=== PATIENT | male | born 1965 | race Caucasian/White ===

== ENCOUNTER 2017-02-12 14:03 | Inpatient (IN) ==
--- NOTE | 2017-02-12 14:56 | Emergency Department Note ---
Disposition Clinical Impression: Abdominal pain Qualifiers: Abdominal location: right lower quadrant Qualified Code(s): R10.31 - Right lower quadrant pain Disposition: Admitted As Inpatient Condition: Good [facility] Provider[facility] - Forms: ED Satisfaction Letter, Work/School Release Time of Disposition: 17:14 Abdominal Pain HPI - General Chief Complaint: ED Abdominal Pain Stated Complaint: Right Lower Quadrant Pain Time Seen by Provider: 02/12/17 14:23 Source: EMS Mode of arrival: ambulatory Limitations: no limitations Nursing Notes Reviewed: Yes Vital Signs Reviewed: Yes - History of Present Illness HPI Narrative: Mr. Acosta is a 51-year-old man with no significant medical history who presents to the ED with right-sided abdominal pain of approximately 7 days' duration. He says that the pain began insidiously more towards the right upper quadrant and slowly migrated towards his right lower quadrant. The pain became so severe that it was approximately a 10 out of 10, and became intolerable. She had some nausea and some vomiting associated with this as well as some black stools which began a few days ago and some diarrhea. Has been extremely helpful for this pain, moving makes it worse. He was seen at several other medical institutions for workup of this abdominal pain. Apparently he has had multiple scans of his abdomen, and has been worked up for acute cholecystitis. He was most recently seen at the [place] emergency room this morning and was told that there is nothing that they could find. He did get 1 shot of Toradol at that time which has been helpful for his pain and his brother to a 3 out of 10. Additionally, the pain does apparently radiate towards his back. He denies any abdominal surgeries in the past. He is not having any fever, chills, chest pain, shortness of breath. Pain Scale: 3 - Related Data Allergies Allergy/AdvReac Type Severity Reaction Status Date / Time No Known Allergies Allergy Verified 02/12/17 15:28 Constitutional: Denies: fever, chills Cardiovascular: Denies: chest pain, palpitations, dyspnea on exertion Respiratory: Reports: cough. Denies: dyspnea, wheezes, hemoptysis, sputum production Gastrointestinal: Reports: abdominal pain, nausea, vomiting, diarrhea, melena. Denies: constipation, hematemesis, hematochezia Genitourinary: Denies: urgency, dysuria, frequency Musculoskeletal: Reports: back pain Integumentary: Denies: rash Neurological: Denies: headache Psychiatric: Denies: anxiety Endocrine: Denies: fatigue Hematological/Lymphatic: Denies: easy bleeding Allergic/Immunologic: Denies: facial swelling Abdominal Pain PMH - Past Medical History Medical history: Reports: other Male Surgical History: Reports: orthopedic, other Psychiatric history: Reports: no psych history - Social History Smoking status: Never smoker Alcohol use: Reports: occasionally Drug use: Reports: none Physical Exam Gen.: Vitals noted. No acute distress. AAOx3 HEENT: Normocephalic, atraumatic Cardiac: RRR, no murmur, +S1/S2 Pulmonary: CTA bilaterally, no wheezes, rales or rhonchi, equal chest expansion Abdomen: soft, diffusely tender to palpation with extra tenderness noted in right lower quadrant. Positive McBurney's point positive Rovsing sign Back: Nontender throughout. Extremities: no BLE edema, nontender calf, no cyanosis or clubbing - General Limitations: no limitations General appearance: alert, in no apparent distress Course Vital Signs Temperature 98.5 F 02/12/17 14:04 Pulse Rate 80 02/12/17 14:04 Respiratory Rate 16 02/12/17 14:04 Blood Pressure 129/85 02/12/17 14:04 O2 Sat by Pulse Oximetry 98 02/12/17 14:04 Temperature 98.5 F 02/12/17 14:04 Pulse Rate 61 02/12/17 16:19 Respiratory Rate 18 02/12/17 16:19 Blood Pressure 153/90 02/12/17 16:19 O2 Sat by Pulse Oximetry 99 02/12/17 16:19 Oxygen Delivery Oxygen Delivery Room Air Abdominal Pain - MDM Narrative Medical decision making narrative: I reviewed the patient's labs, imaging, medical records from the [place]. The patient is having severe abdominal pain which is intractable and has been constant. The patient does have minimal guarding on exam and has a positive Rovsing sign. Despite this, he does not have any evidence radiologically of any acute abdominal process. The patient has been seen at multiple ERs, has had a myriad of imaging and has not found any acute process. Rather, the patient does not have any indication on his labs that there is an infective or hematologic process. The patient's pain is adequately controlled with Toradol, however they rapidly returns to the high rate. The report from the CT of the abdomen earlier did ask for a renal protocol CT to address a 15 mm left renal lesion, however after speaking with the radiologist here the patient is not a candidate for this today because he has already received IV contrast and an previous CT today. I spoke with the on-call surgeon Dr. Argueta who stated that she does not believe this is an acute abdominal emergency, however she is willing to evaluate the patient in the morning. She suggested that we admit the patient to her service, for serial abdominal exams and for surgical evaluation. I spoke with the patient and his who agree to this plan. - Medical Records Medical records reviewed: Yes I reviewed the patient's medical records. - Lab Data Lab results reviewed: Yes I reviewed the patient's lab results. Result diagrams: 02/12/17 15:06 02/12/17 15:06 Lab Results 02/12/17 02/12/17 02/12/17 Range/Units 14:43 15:06 15:06 WBC 7.0 (4.3-11.1) K/mcL RBC 5.70 H (4.19-5.50) M/mcL Hgb 17.3 H (12.9-16.9) g/dL Hct 51.7 H (37.5-50.1) % MCV 90.7 (83.0-100.0) fL MCH 30.4 (28.0-33.3) pg MCHC 33.5 (31.6-35.5) g/dL RDW 11.3 L (11.5-14.5) % Plt Count 307 (140-400) K/mcL MPV 9.8 (9.4-12.4) fL Immature Gran % 1.0 (0-4) % Seg Neutrophils % 56.7 % Lymphocytes % 33.2 % Monocytes % 7.8 % Eosinophils % 0.7 % Basophils % 0.6 % Neutrophils # 4.0 (1.6-8.9) K/mcL Lymphocytes # 2.3 (0.6-4.6) K/mcL Monocytes # 0.6 (0.0-1.3) K/mcL Eosinophils # 0.1 (0.0-0.6) K/mcL Basophils # 0.0 (0.0-0.2) K/mcL Sodium 138 (136-145) mEq/L Potassium 3.8 (3.5-5.1) mEq/L Chloride 104 (98-107) mEq/L Carbon Dioxide 26 (23-29) mEq/L BUN 14 (6-20) mg/dL Creatinine 0.82 (0.70-1.30) mg/dL Est GFR ( Amer) > 60 (> 60) Est GFR (Non-Af Amer) > 60 (> 60) BUN/Creatinine Ratio 17 (6-26) Glucose 94 (70-105) mg/dL Calculated Osmolality 286 (280-300) Calcium 9.4 (8.6-10.3) mg/dL Total Bilirubin 0.7 (0.3-1.0) mg/dL Direct Bilirubin 0.1 (0.0-0.2) mg/dL Indirect Bilirubin 0.6 (0.0-1.2) mg/dL AST 16 (13-39) Units/L ALT 15 (7-52) Units/L Alkaline Phosphatase 76 (34-104) Units/L Troponin I (< 0.04) ng/mL Serum Total Protein 7.7 (6.4-8.9) g/dL Albumin 4.6 (3.5-5.7) g/dL Globulin 3.1 (2.4-3.5) g/dL Albumin/Globulin Ratio 1.5 (1.1-2.2) Lipase 10 L (11-82) Units/L Urine Color (Yellow) Urine Clarity (Clear) Urine pH (5.0-8.0) pH Units Ur Specific [place] (1.010-1.025) Urine Protein (Neg-Trace) mg/dL Urine Glucose (UA) (Normal) mg/dL Urine Ketones (Negative) mg/dL Urine Blood (Negative) Urine Nitrite (Negative) Urine Bilirubin (Negative) Urine Urobilinogen (Normal) mg/dL Ur Leukocyte Esterase (Negative) Ur Culture Indicated? (NO) Stool Occult Blood Negative (Negative) 02/12/17 02/12/17 Range/Units 15:06 15:27 WBC (4.3-11.1) K/mcL RBC (4.19-5.50) M/mcL Hgb (12.9-16.9) g/dL Hct (37.5-50.1) % MCV (83.0-100.0) fL MCH (28.0-33.3) pg MCHC (31.6-35.5) g/dL RDW (11.5-14.5) % Plt Count (140-400) K/mcL MPV (9.4-12.4) fL Immature Gran % (0-4) % Seg Neutrophils % % Lymphocytes % % Monocytes % % Eosinophils % % Basophils % % Neutrophils # (1.6-8.9) K/mcL Lymphocytes # (0.6-4.6) K/mcL Monocytes # (0.0-1.3) K/mcL Eosinophils # (0.0-0.6) K/mcL Basophils # (0.0-0.2) K/mcL Sodium (136-145) mEq/L Potassium (3.5-5.1) mEq/L Chloride (98-107) mEq/L Carbon Dioxide (23-29) mEq/L BUN (6-20) mg/dL Creatinine (0.70-1.30) mg/dL Est GFR ( Amer) (> 60) Est GFR (Non-Af Amer) (> 60) BUN/Creatinine Ratio (6-26) Glucose (70-105) mg/dL Calculated Osmolality (280-300) Calcium (8.6-10.3) mg/dL Total Bilirubin (0.3-1.0) mg/dL Direct Bilirubin (0.0-0.2) mg/dL Indirect Bilirubin (0.0-1.2) mg/dL AST (13-39) Units/L ALT (7-52) Units/L Alkaline Phosphatase (34-104) Units/L Troponin I < 0.03 (< 0.04) ng/mL Serum Total Protein (6.4-8.9) g/dL Albumin (3.5-5.7) g/dL Globulin (2.4-3.5) g/dL Albumin/Globulin Ratio (1.1-2.2) Lipase (11-82) Units/L Urine Color Yellow (Yellow) Urine Clarity Clear (Clear) Urine pH 6.0 (5.0-8.0) pH Units Ur Specific [place] > 1.030 H (1.010-1.025) Urine Protein Negative (Neg-Trace) mg/dL Urine Glucose (UA) Normal (Normal) mg/dL Urine Ketones Negative (Negative) mg/dL Urine Blood Negative (Negative) Urine Nitrite Negative (Negative) Urine Bilirubin Negative (Negative) Urine Urobilinogen Normal (Normal) mg/dL Ur Leukocyte Esterase Negative (Negative) Ur Culture Indicated? NO (NO) Stool Occult Blood (Negative) - Radiology Data Radiology results reviewed: Yes I reviewed the patient's radiology results. Attestation Statement - Attestation Attestation: Resident this patient 51-year-old male presents to emergency department transfer from the [facility] with complaint of right upper and lower quadrant abdominal pain. Patient states the pain been ongoing for greater than 7 days. He has had extensive workups including multiple ultrasounds and CT scans most recently today. He was sent here because of basically intractable pain and inability to find a source for the comfort. Everything is been coming back okay. Patient states the pain is sharp it in the upper and lower abdomens. He has had some darker stools which she attributed to drinking a lot of chocolate milk. He denies fevers or chills. No chest pain. On exam vital signs are stable. ENT is unremarkable. Heart and lungs are normal. Abdomen is soft but there is tenderness in the right upper and right lower quadrants there is no guarding or rigidity. Extremities are unremarkable. Neurologically this patient is intact. ED course I spoke with the patient is and with the really want is to do a laparoscopic to determine what going on. I told him that probably was not something that can be done emergently of all the tests were normal. We did take the time to get the results from the [place] and all the paperwork from there they did recommend a CT scan with renal specificity. As a result we will order this test and some additional lab testing and then we will discuss with surgery to at the very least ensure that we have appropriate follow -up care and management. Radiology called back and they were unable to perform the test because of patient just gotten IV contrast. This is explained to the family. We discussed the case with surgery who agreed to accept the patient for admission for serial abdominal exams through the course of the evening. We presented this is an option to the patient or for option for follow-up. They opted to stay in the hospital as her fairly frustrated with lack of diagnosis. Hemodynamically he remained stable we worked on pain control while in the ER. I agree with the resident physician assessment and plan.
[2017-02-12 15:18] LABS: Basophils % 0.6 %; Eosinophils # 0.1 K/mcL (0.0-0.6); Eosinophils % 0.7 %; Hematocrit 51.7 % (37.5-50.1); Hemoglobin 17.3 g/dL (12.9-16.9); Lymphocytes # 2.3 K/mcL (0.6-4.6); Lymphocytes % 33.2 %; Mean Corpuscular HGB Conc 33.5 g/dL (31.6-35.5); Mean Corpuscular Hemoglobin 30.4 pg (28.0-33.3); Mean Corpuscular Volume 90.7 fL (83.0-100.0); Mean Platelet Volume 9.8 fL (9.4-12.4); Monocytes # 0.6 K/mcL (0.0-1.3); Monocytes % 7.8 %; Platelet Count 307 K/mcL (140-400); Red Cell Distribution Width 11.3 % (11.5-14.5); Segmented Neutrophils % 56.7 %
[2017-02-12 15:41] LABS: Alanine Aminotransferase 15 Units/L (7-52); Albumin 4.6 g/dL (3.5-5.7); Albumin/Globulin Ratio 1.5 (1.1-2.2); Alkaline Phosphatase 76 Units/L (34-104); Aspartate Amino Transferase 16 Units/L (13-39); BUN/Creatinine Ratio 17 (6-26); Bilirubin,Direct 0.1 mg/dL (0.0-0.2); Bilirubin,Indirect 0.6 mg/dL (0.0-1.2); Bilirubin,Total 0.7 mg/dL (0.3-1.0); Blood Urea Nitrogen 14 mg/dL (6-20); Calcium 9.4 mg/dL (8.6-10.3); Carbon Dioxide 26 mEq/L (23-29); Chloride 104 mEq/L (98-107); Globulin 3.1 g/dL (2.4-3.5); Glucose 94 mg/dL (70-105); Lipase 10 Units/L (11-82); Osmolality,Calculated 286 (280-300); Potassium 3.8 mEq/L (3.5-5.1); Sodium 138 mEq/L (136-145); Total Protein 7.7 g/dL (6.4-8.9); eGFR For African Americans > 60 (> 60); eGFR For Non-African Americans > 60 (> 60)
[2017-02-12 15:46] LABS: Bilirubin,Urine Negative (Negative); Blood,Urine Negative (Negative); Clarity,Urine Clear (Clear); Color,Urine Yellow (Yellow); Glucose,Urine (UA) Normal (Normal); Ketones,Urine Negative (Negative); Leukocyte Esterase,Urine Negative (Negative); Nitrite,Urine Negative (Negative); Protein,Urine Negative (Neg-Trace); Specific Gravity,Urine > 1.030 (1.010-1.025); Urobilinogen,Urine Normal (Normal)
[2017-02-12] MEDS ORDERED: Ketorolac 60 MG/2 ML VIAL IM ONE (16:19)
--- NOTE | 2017-02-12 18:29 | General Surg History&Physical ---
<Mable Hope - Last Filed: 02/12/17 20:42> Date of Encounter: 02/12/17 Time of Encounter: 17:40 Assessment and Plan (1) Abdominal pain Current Visit: Yes Status: Acute The assessment and plan as outlined above was discussed with the patient and/or family members who expressed understanding and agreement. All questions were answered. - RUQ and RLQ abdominal pain - Labs and vitals unremarkable - Previous imaging in outside EDs negative for cholelithiasis per patient - Possible etiology of biliary dyskinesia Plan - HIDA scan scheduled for tomorrow. - Morphine PRN pain - Zofran - Protonix 40 mg BID - IVF at 100 mL/hr. NPO midnight Qualifiers: Abdominal location: right upper quadrant Qualified Code(s): R10.11 - Right upper quadrant pain (2) Nausea & vomiting Current Visit: Yes Status: Acute The assessment and plan as outlined above was discussed with the patient and/or family members who expressed understanding and agreement. All questions were answered. Resolved. Zofran PRN nausea. Qualifiers: Vomiting type: unspecified Vomiting Intractability: unspecified Qualified Code(s): R11.2 - Nausea with vomiting, unspecified (3) DVT prophylaxis Current Visit: Yes Status: Acute The assessment and plan as outlined above was discussed with the patient and/or family members who expressed understanding and agreement. All questions were answered. SCDs History of Present Illness Chief complaint: abdominal pain HPI: Mr. Acosta is a 51 year old male presenting to emergency department for right- sided abdominal pain x7 days. Pain began in RUQ and has come to include RLQ. Pain is described as throbbing and pressure-like in nature. Over the last week, he has been seen at [facility], [facility], and [facility] emergency department for work up of this abdominal pain. Pain began morning of February 05 , was diagnosed with mesenteric adenitis at [facility] and was given clindamycin. He visited a [place] nurse practitioner a couple days later who ordered a gallbladder ultrasound that patient and his state was negative for gall stones. Per patient, pain is relieved somewhat when he lays still and when he takes hydrocodone. His pain is worse with non-specific movement. He admits to nausea but denies any episodes of vomiting. Admits to dyspepsia but no association with certain foods. Relieved with TUMS. In the ED, vital signs stable. Labs unremarkable. No imaging performed. Past Med Surg Social Fam HX - Past Medical History Medical history: other Psychiatric history: no psych history - Past Surgical History Surgical History: non-contributory - Social History Smoking Status: Never smoker Smokeless Tobacco Status: No Alcohol use: occasionally Drug use: none Medications and Allergies Clindamycin HCl [Clindamycin HCl] 300 mg PO TID 02/12/17 [History] Gabapentin [Neurontin] 800 mg PO TID 02/12/17 [History] Glucosamine Sulfate Dipot Chlr [Glucosamine] 1,000 mg PO AD 02/12/17 [History] HYDROcodone/Acet 5/325 mg [[place] 5-325 mg] 1 tab PO Q4H PRN 02/12/17 [History] MethylPREDNISolone [MethylPREDNISolone Dose Pack] 4 mg PO AD 02/12/17 [History] Ondansetron ODT [Zofran ODT] 4 mg SL Q4-6H PRN 02/12/17 [History] Tizanidine HCl 4 mg PO TID PRN 02/12/17 [History] Tramadol HCl [Ultram] 100 mg PO TID PRN 02/12/17 [History] 3 Allergy/AdvReac Type Severity Reaction Status Date / Time No Known Allergies Allergy Verified 02/12/17 15:28 Review of Systems All systems PM: A 10-system review of systems was performed and is negative for pertinent findings except as documented above in the HPI. - Constitutional anorexia - Cardiovascular no chest pain - Gastrointestinal abdominal pain (RUQ, RLQ), belching, bloating, diarrhea, heartburn, melena, nausea, no vomiting - Allergic/Immunologic seasonal rhinorrhea General Surgery Exam Initial Vital Signs Temp Pulse Resp BP Pulse Ox 98.5 F 80 16 129/85 98 02/12/17 14:04 02/12/17 14:04 02/12/17 14:04 02/12/17 14:04 02/12/17 14:04 - General physical appearance well developed, well nourished, no distress, no pain - Eyes normal ocular movement. negative: icteric - Respiratory normal respiratory effort, clear to auscultation - Cardiovascular Cardiovascular exam: Present: RRR. Absent: murmurs - Abdomen Abdomen general surgery: Present: bowel sounds present, soft, tender, guarding ( voluntary ). Absent: rigid, peritoneal Abdominal Tenderness: Present: RUQ, RLQ - Integumentary Integumentary general surgery: Present: warm and dry, no abnormal pigmentation - Neurologic Present: CN 2-12 grossly intact - Psychiatric Psychiatric general surgery: Present: A&Ox3, appropriate, oriented to person, oriented to place, oriented to time, speech is normal, memory intact Results - Labs 02/12/17 15:06 02/12/17 15:06 Abnormal lab results RBC 5.70 M/mcL (4.19-5.50) H 02/12/17 15:06 Hgb 17.3 g/dL (12.9-16.9) H 02/12/17 15:06 Hct 51.7 % (37.5-50.1) H 02/12/17 15:06 RDW 11.3 % (11.5-14.5) L 02/12/17 15:06 Lipase 10 Units/L (11-82) L 02/12/17 15:06 Ur Specific [place] > 1.030 (1.010-1.025) H 02/12/17 15:27 All other labs normal. <Esthela Argueta - Last Filed: 02/13/17 14:19> Date of Encounter: 02/13/17 Assessment and Plan (1) Abdominal pain Current Visit: Yes Status: Acute The assessment and plan as outlined above was discussed with the patient and/or family members who expressed understanding and agreement. All questions were answered. prn pain control Qualifiers: Abdominal location: right upper quadrant Qualified Code(s): R10.11 - Right upper quadrant pain (2) Biliary dyskinesia Current Visit: Yes Status: Acute The assessment and plan as outlined above was discussed with the patient and/or family members who expressed understanding and agreement. All questions were answered. discussed with patient that he had increased right sided abdominal pain and pressure as well as nausea with the hida scan today. I believe his symptoms are due to his gallbladder especially since he is very tender in RUQ. Will plan a laparoscopic cholecystectomy, possible cholangiograms possible open, risks and benefits discussed and he wishes to proceed He is on the OR schedule for tomorrow ok clears today and npo after breakfast tomorrow labs - reviewed prn pain control and antiemetics (3) Nausea & vomiting Current Visit: Yes Status: Acute The assessment and plan as outlined above was discussed with the patient and/or family members who expressed understanding and agreement. All questions were answered. Qualifiers: Vomiting type: unspecified Vomiting Intractability: unspecified Qualified Code(s): R11.2 - Nausea with vomiting, unspecified (4) GERD (gastroesophageal reflux disease) Current Visit: Yes Status: Chronic The assessment and plan as outlined above was discussed with the patient and/or family members who expressed understanding and agreement. All questions were answered. patient with persistent symptoms of gerd but not on any dedicated PPI therapy, start protonix iv Qualifiers: Esophagitis presence: esophagitis presence not specified Qualified Code(s) : K21.9 - Gastro-esophageal reflux disease without esophagitis (5) Lesion of left red cliff kidney Current Visit: Yes Status: Chronic The assessment and plan as outlined above was discussed with the patient and/or family members who expressed understanding and agreement. All questions were answered. discussed CT [facility] with patient, will order CT with renal protocol to further evaluate, if simple cyst nothing further needs done, if complex cyst or renal mass will have patient follow up with urology (6) Liver lesion Current Visit: Yes Status: Acute The assessment and plan as outlined above was discussed with the patient and/or family members who expressed understanding and agreement. All questions were answered. discussed [facility] report with patient regarding liver lesion, likely cyst and is small only 5mm History of Present Illness HPI: Mr. Acosta is a 51 year old male with right sided and rlq pain which radiates into his back for the last 8 days. Pain is sharp and increases after he eats. He has been having nausea as well but without emesis. Some dark brown diarrhea several days ago. Denies melena or hematochezia. He has been to three ER's in the last week and half. CT scan at [facility] was told there was no pathology on CT but started on 7 days of clindamycin and told he had mesenteric adenitis? Presented to [facility] ED and CT was done showing small 5mm liver lesion, likely cyst and a 15 mm left renal lesion unsure if mass or cyst. US gallbladder at [place] was told no stones. No fevers, chills or night sweats. Pain worsens with movement. He complains of heartburn and reflux and has had symptoms for some time now, he does take tums and drink milk for the symptoms which it doesn't help much. He has never taken a dedicated acid grey goods examiner. Symptoms have awoken him in the past. Past Med Surg Social Fam HX - Past Medical History Source: patient Medical history: hyperlipidemia, hypertension, other (chronic back pain, TMJ pain, HTN, PTSD, mood disorder, borderline hypothyroid, vit D deficiency., post laminectomy syndrome) Psychiatric history: other (PTSD, mood disorder) - Past Surgical History Surgical History: other (laminectomy) Review of Systems All systems PM: reviewed and no additional remarkable complaints except as stated All systems PM: A 10-system review of systems was performed and is negative for pertinent findings except as documented above in the HPI. General Surgery Exam Initial Vital Signs Temp Pulse Resp BP Pulse Ox 98.5 F 80 16 129/85 98 02/12/17 14:04 02/12/17 14:04 02/12/17 14:04 02/12/17 14:04 02/12/17 14:04 - General physical appearance well developed, well nourished, no distress - Eyes PERRL, normal ocular movement - ENT normal mucosa, normocephalic - Respiratory normal expansion, normal respiratory effort - Cardiovascular Cardiovascular exam: Present: RRR - Abdomen Abdomen general surgery: Present: bowel sounds present, soft, tender. Absent: guarding Abdominal Tenderness: Present: RUQ - Integumentary Integumentary general surgery: Present: no abnormal pigmentation - Neurologic Present: CN 2-12 grossly intact - Musculoskeletal Present: normal posture - Psychiatric Psychiatric general surgery: Present: A&Ox3, speech is normal Results - Labs 02/13/17 04:29 02/13/17 04:29 Abnormal lab results RDW 11.3 % (11.5-14.5) L 02/13/17 04:29 POC Glucose 102 (58-89) H 02/13/17 11:04 Calcium 8.5 mg/dL (8.6-10.3) L 02/13/17 04:29 Lipase 10 Units/L (11-82) L 02/12/17 15:06 Ur Specific [place] > 1.030 (1.010-1.025) H 02/12/17 15:27 Diabetes panel 02/13/17 Range/Units 04:29 Sodium 138 (136-145) mEq/L Potassium 4.0 (3.5-5.1) mEq/L Chloride 107 (98-107) mEq/L Carbon Dioxide 26 (23-29) mEq/L BUN 14 (6-20) mg/dL Creatinine 0.79 (0.70-1.30) mg/dL Glucose 91 (70-105) mg/dL Calcium 8.5 L (8.6-10.3) mg/dL Calcium panel 02/13/17 Range/Units 04:29 Calcium 8.5 L (8.6-10.3) mg/dL Pituitary panel 02/13/17 Range/Units 04:29 Sodium 138 (136-145) mEq/L Potassium 4.0 (3.5-5.1) mEq/L Chloride 107 (98-107) mEq/L Carbon Dioxide 26 (23-29) mEq/L BUN 14 (6-20) mg/dL Creatinine 0.79 (0.70-1.30) mg/dL Glucose 91 (70-105) mg/dL Calcium 8.5 L (8.6-10.3) mg/dL Adrenal panel 02/13/17 Range/Units 04:29 Sodium 138 (136-145) mEq/L Potassium 4.0 (3.5-5.1) mEq/L Chloride 107 (98-107) mEq/L Carbon Dioxide 26 (23-29) mEq/L BUN 14 (6-20) mg/dL Creatinine 0.79 (0.70-1.30) mg/dL Glucose 91 (70-105) mg/dL Calcium 8.5 L (8.6-10.3) mg/dL All other labs normal. - Imaging CT scan - abdomen: report reviewed CT scan - pelvis: report reviewed (unable to [facility] from [facility]) Additional studies: HIDA report - Attending Attestation I examined this patient and my medical decision-making was reviewed with the Resident Physician. I agree with the documented findings, disposition and treatment plan as described except to the extent set forth below.
[2017-02-12] MEDS ORDERED: Naloxone 0.4 MG/ML INJ IVP PRN (20:35)
[2017-02-12] MEDS: 0.9 % Sodium Chloride 1,000 ML IVC SCH (22:47)
[2017-02-13 04:55] LABS: Basophils % 0.5 %; Eosinophils # 0.1 K/mcL (0.0-0.6); Eosinophils % 0.8 %; Hematocrit 43.4 % (37.5-50.1); Immature Granulocytes % 0.8 % (0-4); Lymphocytes # 2.1 K/mcL (0.6-4.6); Lymphocytes % 34.2 %; Mean Corpuscular HGB Conc 34.3 g/dL (31.6-35.5); Mean Corpuscular Volume 90.2 fL (83.0-100.0); Mean Platelet Volume 9.9 fL (9.4-12.4); Monocytes # 0.7 K/mcL (0.0-1.3); Monocytes % 11.1 %; Neutrophils # 3.3 K/mcL (1.6-8.9); Platelet Count 260 K/mcL (140-400); Red Blood Count 4.81 M/mcL (4.19-5.50); Red Cell Distribution Width 11.3 % (11.5-14.5); Segmented Neutrophils % 52.6 %
[2017-02-13 05:12] LABS: Hemoglobin 14.9 g/dL (12.9-16.9)
[2017-02-13 05:20] LABS: BUN/Creatinine Ratio 18 (6-26); Blood Urea Nitrogen 14 mg/dL (6-20); Calcium 8.5 mg/dL (8.6-10.3); Carbon Dioxide 26 mEq/L (23-29); Chloride 107 mEq/L (98-107); Glucose 91 mg/dL (70-105); Osmolality,Calculated 286 (280-300); Sodium 138 mEq/L (136-145); eGFR For African Americans > 60 (> 60); eGFR For Non-African Americans > 60 (> 60)
[2017-02-13] MEDS: Pantoprazole 40 MG VIAL IVP SCH ×2 (05:51→17:28)
[2017-02-13] MEDS ORDERED: *HR* Promethazine 25 MG/ML VIAL IVP PRN (09:11)
--- NOTE | 2017-02-13 10:04 | General Surgery Progress Note ---
<Mable Hope - Last Filed: 02/13/17 13:38> Date of Encounter: 02/13/17 Time of Encounter: 09:57 - Assessment and Plan (1) Biliary dyskinesia Current Visit: Yes Status: Acute Afebrile, vital signs stable, labwork unremarkable. HIDA with CCK 02/13/17-- Gallbladder EF 90%, no convincing evidence of acute or chronic cholecystitis per radiology interpretation. Patient reports RUQ pressure during and after HIDA scan (not present before study). Plan: - Anticipate potential cholecystectomy in next 24-48 hours - Will obtain surgical consent - Morphine PRN pain - Zofran and Phenergan PRN for nausea - Protonix 40mg IVP Q12H - IVF at 100 mL/hr - Continue NPO (2) Abdominal pain Current Visit: Yes Status: Acute Suspect d/t biliary dyskinesia. RUQ pain felt during and after HIDA scan today. Plan as above. Qualifiers: Abdominal location: right upper quadrant Qualified Code(s): R10.11 - Right upper quadrant pain (3) Nausea & vomiting Current Visit: Yes Status: Acute Nausea during HIDA scan, now resolved. Zofran and Phenergan available PRN. Qualifiers: Vomiting type: unspecified Vomiting Intractability: unspecified Qualified Code(s): R11.2 - Nausea with vomiting, unspecified (4) DVT prophylaxis Current Visit: Yes Status: Acute SCDs Subjective Patient reports: no new complaints, still having pain, bowel movement, nausea Narrative: Seen and examined this morning at bedside, patient's present in room. No events reported overnight. Patient had HIDA with CCK this morning. Prior to test , patient describes RLQ and Rt lower back pain equivalent to yesterday's pain. During HIDA, he reported having RUQ "pressure" and nausea after being given CCK. Now, reports some continued RUQ discomfort as well as RLQ and Rt lower back pain. Denies fever, chills, chest pain, dyspnea, vomiting. Admits to nausea and BM x2. Objective Vital Signs - Last 8 Hours Temp Pulse Resp BP Pulse Ox 02/13/17 04:06 97.9 F 72 14 119/69 96 Intake and Output 02/12/17 02/13/17 02/13/17 23:59 07:59 15:59 Intake Total 0 / 0 0 / 0 Output Total 0 / 0 0 / 0 Balance 0 / 0 0 / 0 Intake: Oral 0 / 0 0 / 0 Output: Urine 0 / 0 0 / 0 Other: Stool Size Moderate Stool Consistency soft formed Stool Characteristics Normal for Patient Stool Color Brown # Voids 1 # Bowel Movements 1 Weight 117.571 kg - General physical appearance well developed, well nourished, no distress, no pain - Eyes normal ocular movement - Respiratory normal expansion, normal respiratory effort, clear to auscultation - Cardiovascular Cardiovascular exam: Present: RRR. Absent: murmurs - Abdomen Abdomen: Present: bowel sounds present, soft, guarding (voluntary (RUQ)). Absent: peritoneal Abdominal Tenderness: RUQ, RLQ - Neurologic CN 2-12 grossly intact, other (no focal deficits) - Psychiatric oriented to time, oriented to person, oriented to place, speech is normal, memory intact - Labs 02/13/17 04:29 02/13/17 04:29 Diabetes panel 02/13/17 Range/Units 04:29 Sodium 138 (136-145) mEq/L Potassium 4.0 (3.5-5.1) mEq/L Chloride 107 (98-107) mEq/L Carbon Dioxide 26 (23-29) mEq/L BUN 14 (6-20) mg/dL Creatinine 0.79 (0.70-1.30) mg/dL Glucose 91 (70-105) mg/dL Calcium 8.5 L (8.6-10.3) mg/dL Calcium panel 02/13/17 Range/Units 04:29 Calcium 8.5 L (8.6-10.3) mg/dL Pituitary panel 02/13/17 Range/Units 04:29 Sodium 138 (136-145) mEq/L Potassium 4.0 (3.5-5.1) mEq/L Chloride 107 (98-107) mEq/L Carbon Dioxide 26 (23-29) mEq/L BUN 14 (6-20) mg/dL Creatinine 0.79 (0.70-1.30) mg/dL Glucose 91 (70-105) mg/dL Calcium 8.5 L (8.6-10.3) mg/dL Adrenal panel 02/13/17 Range/Units 04:29 Sodium 138 (136-145) mEq/L Potassium 4.0 (3.5-5.1) mEq/L Chloride 107 (98-107) mEq/L Carbon Dioxide 26 (23-29) mEq/L BUN 14 (6-20) mg/dL Creatinine 0.79 (0.70-1.30) mg/dL Glucose 91 (70-105) mg/dL Calcium 8.5 L (8.6-10.3) mg/dL - Imaging Additional Studies: HIDA with CCK report reviewed Consult Discharge Plan - Plan [facility] Care Provider[facility] - <Esthela Argueta - Last Filed: 02/13/17 14:21> Date of Encounter: 02/13/17 - Assessment and Plan (1) Abdominal pain Current Visit: Yes Status: Acute Qualifiers: Abdominal location: right upper quadrant Qualified Code(s): R10.11 - Right upper quadrant pain (2) Biliary dyskinesia Current Visit: Yes Status: Acute agree with resident (3) Nausea & vomiting Current Visit: Yes Status: Acute Qualifiers: Vomiting type: unspecified Vomiting Intractability: unspecified Qualified Code(s): R11.2 - Nausea with vomiting, unspecified (4) GERD (gastroesophageal reflux disease) Current Visit: Yes Status: Chronic PPI therapy Qualifiers: Esophagitis presence: esophagitis presence not specified Qualified Code(s) : K21.9 - Gastro-esophageal reflux disease without esophagitis (5) Lesion of left [place] kidney Current Visit: Yes Status: Chronic CT abd/pelvis renal protocol pending (6) Liver lesion Current Visit: Yes Status: Acute Subjective Patient reports: no new complaints, feels better, still having pain, pain is less Objective Vital Signs - Last 8 Hours Temp Pulse Resp BP Pulse Ox 02/13/17 10:23 98.6 F 68 14 125/81 97 Intake and Output 02/12/17 02/13/17 02/13/17 23:59 07:59 15:59 Intake Total 0 / 0 0 / 0 1000 / 1000 Output Total 0 / 0 0 / 0 300 / 300 Balance 0 / 0 0 / 0 700 / 700 Intake: IV Fluids 1000 / 1000 0.9 % Sodium Chloride 1,000 ML 1000 / 1000 @ 100 mls/hr IVC .Q10H LOYD Rx#: [id number] Oral 0 / 0 0 / 0 0 / 0 Output: Urine 0 / 0 0 / 0 300 / 300 Other: Stool Size Moderate Stool Consistency soft formed Stool Characteristics Normal for Patient Stool Color Brown # Voids 1 # Bowel Movements 1 Weight 117.571 kg Blood Glucose* 102 - General physical appearance well nourished, no distress - Eyes PERRL, normal ocular movement - ENT normal mucosa, normocephalic - Neck Neck exam: trachea midline - Respiratory normal expansion, normal respiratory effort - Cardiovascular Cardiovascular exam: Present: RRR - Abdomen Abdomen: Present: soft, tender. Absent: guarding Abdominal Tenderness: RUQ - Neurologic CN 2-12 grossly intact - Musculoskeletal normal posture - Psychiatric oriented to time, oriented to person, oriented to place - Labs 02/13/17 04:29 02/13/17 04:29 Diabetes panel 02/13/17 Range/Units 04:29 Sodium 138 (136-145) mEq/L Potassium 4.0 (3.5-5.1) mEq/L Chloride 107 (98-107) mEq/L Carbon Dioxide 26 (23-29) mEq/L BUN 14 (6-20) mg/dL Creatinine 0.79 (0.70-1.30) mg/dL Glucose 91 (70-105) mg/dL Calcium 8.5 L (8.6-10.3) mg/dL Calcium panel 02/13/17 Range/Units 04:29 Calcium 8.5 L (8.6-10.3) mg/dL Pituitary panel 02/13/17 Range/Units 04:29 Sodium 138 (136-145) mEq/L Potassium 4.0 (3.5-5.1) mEq/L Chloride 107 (98-107) mEq/L Carbon Dioxide 26 (23-29) mEq/L BUN 14 (6-20) mg/dL Creatinine 0.79 (0.70-1.30) mg/dL Glucose 91 (70-105) mg/dL Calcium 8.5 L (8.6-10.3) mg/dL Adrenal panel 02/13/17 Range/Units 04:29 Sodium 138 (136-145) mEq/L Potassium 4.0 (3.5-5.1) mEq/L Chloride 107 (98-107) mEq/L Carbon Dioxide 26 (23-29) mEq/L BUN 14 (6-20) mg/dL Creatinine 0.79 (0.70-1.30) mg/dL Glucose 91 (70-105) mg/dL Calcium 8.5 L (8.6-10.3) mg/dL - Attending Attestation I examined this patient and my medical decision-making was reviewed with the Resident Physician. I agree with the documented findings, disposition and treatment plan as described except to the extent set forth below.
[2017-02-13] MEDS: 0.9 % Sodium Chloride 1,000 ML IVC SCH ×2 (12:55→12:57)
[2017-02-13] MEDS: *HR* Morphine 2 MG/ML SYRINGE IVP PRN ×2 (12:56→19:54)
--- NOTE | 2017-02-14 00:11 | Anesthesia Evaluation PreOp ---
Date of Encounter: 02/14/17 Time of Encounter: 00:09 - Past History Planned Operation: LAP JULIÁN Cardiac History: HTN, Hyperlipidemia Pulmonary History: Denies Any Significant HX ARTILLERY SPECIALIST History: Other (Chronic back pain/post-laminectomy sydnrome. TMJ pain. PTSD/ Mood disorder) Other Medical History: Renal (Chronic L-kidney lesion/issue.), GERD Anesthesia History: Past Anesthesia (Lumbar laminectomy) Alcohol Use: occasionally Drug use: none Medications and Allergies Clindamycin HCl [Clindamycin HCl] 300 mg PO TID 02/12/17 [History] Gabapentin [Neurontin] 800 mg PO TID 02/12/17 [History] Glucosamine Sulfate Dipot Chlr [Glucosamine] 1,000 mg PO AD 02/12/17 [History] HYDROcodone/Acet 5/325 mg [[place] 5-325 mg] 1 tab PO Q4H PRN 02/12/17 [History] MethylPREDNISolone [MethylPREDNISolone Dose Pack] 4 mg PO AD 02/12/17 [History] Ondansetron ODT [Zofran ODT] 4 mg SL Q4-6H PRN 02/12/17 [History] Tizanidine HCl 4 mg PO TID PRN 02/12/17 [History] Tramadol HCl [Ultram] 100 mg PO TID PRN 02/12/17 [History] 3 Allergy/AdvReac Type Severity Reaction Status Date / Time No Known Allergies Allergy Verified 02/12/17 15:28 - Meds/Allergy Pre-op Review Medications Reviewed: Yes Allergies Reviewed: Yes Beta Blockers on Current Med List: No Anesthesia Results - Labs 02/13/17 04:29 02/13/17 04:29 Laboratory Results Impressions Liver Scan Nuclear Medicine 02/13/17 06:30 IMPRESSION: No convincing scintigraphic evidence of acute or chronic cholecystitis. D/ / Tadeo Barrera MD / Tadeo Barrera MD Interpreting Provider: Tadeo Barrera MD Abdomen/Pelvis CT 02/13/17 14:00 IMPRESSION: There is a nonenhancing 1.5 cm low-attenuation lesion in the mid to inferior left kidney most consistent with a simple cyst. No follow-up indicated. No acute intra-abdominal or intrapelvic abnormality. D/ / Sultana Baugh MD / Sultana Baugh MD Interpreting Provider: Sultana Baugh MD Anesthesia Exam Vital Signs Temp Pulse Resp BP Pulse Ox 02/13/17 19:29 99.2 F 71 15 107/62 97 02/13/17 14:41 98.7 F 64 14 119/78 97 02/13/17 10:23 98.6 F 68 14 125/81 97 02/13/17 04:06 97.9 F 72 14 119/69 96 02/13/17 00:16 97.9 F 67 14 112/72 97 Intake and Output 02/13/17 02/13/17 02/14/17 15:59 23:59 07:59 Intake Total 1000 / 1000 520 / 520 Output Total 300 / 300 0 / 0 Balance 700 / 700 520 / 520 Intake: IV Fluids 1000 / 1000 100 / 100 0.9 % Sodium Chloride 1,000 ML 1000 / 1000 100 / 100 @ 100 mls/hr IVC .Q10H LOYD Rx#: [id number] Oral 0 / 0 420 / 420 Output: Urine 300 / 300 0 / 0 Other: Blood Glucose* 102 Height: 6'3" Weight: 259# BMI = 32.4 Anesthesia Assess/Plan ASA Score: 3 (HTN, Chol, Obesity, PTSD/Mood disorder, Chronic Pain) Modified Bandar Scale for Level of Consciousness: Cooperative, oriented, and tranquil Anesthetic Plan: General Monitoring Plan: Standard Monitors Recovery Plan: PACU
[2017-02-14] MEDS: Ondansetron 4 MG/2 ML VIAL IVP PRN ×2 (04:10→10:34)
[2017-02-14] MEDS: *HR* Morphine 2 MG/ML SYRINGE IVP PRN ×4 (04:10→19:13)
[2017-02-14] MEDS: 0.9 % Sodium Chloride 1,000 ML IVC SCH ×3 (05:29→19:21)
[2017-02-14] MEDS: Pantoprazole 40 MG VIAL IVP SCH (05:29)
[2017-02-14 06:08] LABS: Basophils % 0.4 %; Eosinophils # 0.1 K/mcL (0.0-0.6); Hematocrit 41.1 % (37.5-50.1); Immature Granulocytes % 0.8 % (0-4); Lymphocytes # 1.6 K/mcL (0.6-4.6); Lymphocytes % 32.4 %; Mean Corpuscular HGB Conc 34.1 g/dL (31.6-35.5); Mean Corpuscular Hemoglobin 30.7 pg (28.0-33.3); Mean Corpuscular Volume 90.1 fL (83.0-100.0); Mean Platelet Volume 9.5 fL (9.4-12.4); Monocytes # 0.7 K/mcL (0.0-1.3); Monocytes % 13.6 %; Neutrophils # 2.5 K/mcL (1.6-8.9); Nucleated Red Blood Cells 0.4 /100 WBC (0); Platelet Count 274 K/mcL (140-400); Red Blood Count 4.56 M/mcL (4.19-5.50); Red Cell Distribution Width 11.4 % (11.5-14.5); Segmented Neutrophils % 51.8 %
[2017-02-14 06:28] LABS: Alanine Aminotransferase 11 Units/L (7-52); Albumin 3.2 g/dL (3.5-5.7); Albumin/Globulin Ratio 1.3 (1.1-2.2); Alkaline Phosphatase 55 Units/L (34-104); Aspartate Amino Transferase 12 Units/L (13-39); BUN/Creatinine Ratio 13 (6-26); Bilirubin,Direct 0.1 mg/dL (0.0-0.2); Bilirubin,Indirect 0.7 mg/dL (0.0-1.2); Bilirubin,Total 0.8 mg/dL (0.3-1.0); Blood Urea Nitrogen 10 mg/dL (6-20); Calcium 8.4 mg/dL (8.6-10.3); Carbon Dioxide 29 mEq/L (23-29); Chloride 109 mEq/L (98-107); Globulin 2.4 g/dL (2.4-3.5); Glucose 102 mg/dL (70-105); Osmolality,Calculated 289 (280-300); Potassium 4.1 mEq/L (3.5-5.1); Sodium 140 mEq/L (136-145); Total Protein 5.6 g/dL (6.4-8.9); eGFR For African Americans > 60 (> 60); eGFR For Non-African Americans > 60 (> 60)
[2017-02-14] MEDS ORDERED: *HR* Propofol 200 MG/20 ML VIAL IVP ONE (17:13)
[2017-02-14] MEDS ORDERED: *HR* Rocuronium Bromide 50 MG/5 ML VIAL ONE (17:14)
[2017-02-14] MEDS ORDERED: Lidocaine -MPF 2% 2 ML VIAL ONE (17:14)
[2017-02-14] MEDS ORDERED: *HR* FentaNYL (PF) 100 MCG/2 ML VIAL ONE (17:14)
[2017-02-14] MEDS ORDERED: Dexamethasone 4 MG/ML VIAL ONE (17:14)
[2017-02-14] MEDS ORDERED: Ondansetron 4 MG/2 ML VIAL ONE (17:14)
[2017-02-14] MEDS ORDERED: *HR* Succinylcholine 200 MG/10 ML VIAL IVP ONE (17:14)
[2017-02-14] MEDS ORDERED: Lidocaine -MPF 4% 5 ML AMPUL ONE (17:16)
[2017-02-14] MEDS ORDERED: Famotidine 20 MG/2 ML VIAL ONE (17:17)
[2017-02-14] MEDS ORDERED: Acetaminophen IV 1,000 MG/100 ML INFUS..BTL ONE (17:17)
[2017-02-14] MEDS ORDERED: CefOXitin 2,000 MG VIAL ONE (17:29)
[2017-02-14] MEDS ORDERED: cefOXitin 2,000 MG in Water for inj. (sterile) 10 ML IVP ONE (17:42)
[2017-02-14] MEDS ORDERED: Ondansetron 4 MG/2 ML VIAL IVP ONE (18:01)
[2017-02-14] MEDS ORDERED: Neostigmine Methylsulfate 3 MG/3 ML SYRINGE ONE (18:14)
--- NOTE | 2017-02-14 18:20 | Operative Note ---
Date of procedure: 02/14/17 Pre-op diagnosis: biliary dyskinesia Post-op diagnosis: same Procedure: Laparoscopic cholecystectomy Complications: none immediate Anesthesia: GETA, local Local Anesthetics: 0.5% Sensorcaine HCL SubQ (cc) Surgeon: Esthela Argueta Was there an assistant sales manager present: Yes Manufacturing Support Engineer: Sarai Persaud Estimated blood loss (cc): 5 Specimen: gallbladder and contents Condition: stable Disposition: PACU Procedure in Detail: The patient was brought into the operating suite and placed supine on the operating table. Sign-in was performed and everyone was in agreement. Anesthesia was induced and patient was endotracheally intubated by anesthesia without incident and they also placed an OG tube. The abdomen was prepped and draped in the usual sterile fashion. A timeout was performed again everyone was in agreement. A supraumbilical incision was made through the skin into the subcutaneous tissue with an 11 blade. Towel clamps were placed on either side of the umbilicus for retraction. S retractors were used to dissect down to the anterior abdominal wall linea alba fascia. A Veress needle was placed through this incision and a water drop test confirmed placement and the abdomen was insufflated. The abdomen was entered with a 5 mm 0 degree laparoscope on a 5 mm X-alisha trocar. The area and entry was visualized was no bleeding and no apparent bowel injury. A 5 mm subxiphoid port was placed under direct visualization after first incising the skin with an 11 blade. A right upper quadrant subcostal position midclavicular line 5 mm port was placed under direct visualization after first incising skin with 11 blade. The laparoscope was placed in this and we exchanged the supraumbilical port for a 12 mm port under direct visualization. The last 5 mm port was placed in the right upper quadrant subcostal position anterior axillary line after first incising the skin with an 11 blade. The patient was placed in steep reverse Trendelenburg left side down position. The dome of the gallbladder was grasped and retracted cephalad. Omental adhesions to the body and infundibulum of the gallbladder were taken down bluntly with the [place]. The infundibulum was grasped and retracted laterally. Using the [place] we dissected out the cystic duct and cystic artery. Three 5 mm hemoclips were placed distally on the cystic duct one proximally and it was transected with curved scissors. The cystic artery was doubly clipped proximally, once distally and transected with curved scissors. The gallbladder was removed off the cystic plate with the Bovie. Any bleeding points were stopped with the Bovie. The gallbladder was placed in a laparoscopic Endo Catch bag and removed via the supraumbilical incision site. The inferior edge of the liver was bluntly retracted cephalad and the cystic plate was copiously irrigated with sterile saline. There was no bleeding or apparent bile leak from the cystic plate and the clips on the cystic artery and duct were intact. All irrigation was suctioned free from the abdomen. All insufflation was suctioned free from the abdomen and the ports removed. The abdominal wall at the supraumbilical incision site was closed with a 0 Vicryl [id number] stitch. 30 mL of 0.5% Marcaine was injected subcutaneously at the 4 port sites. The skin at the three 5 mm port sites were closed with 4-0 Monocryl interrupted subcuticular stitches. The skin at the supraumbilical incision site was closed with a 4-0 Monocryl running subcuticular stitch. Steri -Strips were applied to all wounds. The patient was awoken in the operating suite having tolerated the procedure well and were taken to PACU in stable condition after all lap and ensuring counts were correct at the end of the case.
[2017-02-14] MEDS: *HR* HYDROmorphone (PF) 1 MG/ML SYRINGE IVP PRN ×4 (18:23→18:41)
--- NOTE | 2017-02-14 18:50 | Anesthesia Evaluation Post Op ---
Date of Encounter: 02/14/17 Time of Encounter: 19:00 - Vital Signs Vital Signs: Vital Signs/O2 Sat/Glucose, Most Current Temp Pulse Resp BP Pulse Ox 02/14/17 18:48 98 F 75 14 144/82 99 02/14/17 18:38 76 14 145/88 100 02/14/17 18:28 71 16 155/87 100 02/14/17 18:18 97.7 F 100 16 162/94 100 - Lungs Lungs: Clear Ascult./Percussion - Airway Airway: Non-obstructed - Cardiovascular Regular Rate - Mental Status Mental Status: Alert & Oriented, Answers Appropriately - Pain Pain Scale: 1 - Nausea Vomiting Nausea Vomiting: Not Present - Hydration Hydration: Ice chips - Discharge PostOp Status: Transfer Patient to floor
[2017-02-14] MEDS ORDERED: *HR* Promethazine 25 MG/ML VIAL IVP PRN (19:04)
[2017-02-14] MEDS ORDERED: *HR* OxyCODONE/APAP 5/325 TABLET PO PRN (19:04)
[2017-02-14] MEDS ORDERED: Naloxone 0.4 MG/ML INJ IVP PRN (19:04)
[2017-02-14] MEDS: Gabapentin 400 MG CAPSULE PO SCH (22:05)
[2017-02-14] MEDS: tiZANidine 4 MG TABLET PO SCH (22:05)
[2017-02-14] MEDS: traMADol 50 MG TABLET PO PRN (22:06)
[2017-02-15] MEDS: *HR* Morphine 2 MG/ML SYRINGE IVP PRN (03:48)
[2017-02-15] MEDS: 0.9 % Sodium Chloride 1,000 ML IVC SCH (05:21)
[2017-02-15 06:58] VITALS: BP 132/81
[2017-02-15] MEDS: Gabapentin 400 MG CAPSULE PO SCH (08:34)
[2017-02-15] MEDS: tiZANidine 4 MG TABLET PO SCH (08:34)
[2017-02-15] MEDS: traMADol 50 MG TABLET PO PRN (08:34)
[2017-02-15 09:37] LABS: Basophils % 0.1 %; Hematocrit 40.8 % (37.5-50.1); Hemoglobin 13.8 g/dL (12.9-16.9); Immature Granulocytes % 0.4 % (0-4); Lymphocytes # 1.1 K/mcL (0.6-4.6); Lymphocytes % 12.2 %; Mean Corpuscular HGB Conc 33.8 g/dL (31.6-35.5); Mean Corpuscular Hemoglobin 30.5 pg (28.0-33.3); Mean Corpuscular Volume 90.3 fL (83.0-100.0); Mean Platelet Volume 9.7 fL (9.4-12.4); Monocytes # 0.9 K/mcL (0.0-1.3); Monocytes % 9.7 %; Neutrophils # 7.1 K/mcL (1.6-8.9); Platelet Count 309 K/mcL (140-400); Red Blood Count 4.52 M/mcL (4.19-5.50); Red Cell Distribution Width 11.2 % (11.5-14.5); Segmented Neutrophils % 77.6 %
[2017-02-15 09:48] LABS: BUN/Creatinine Ratio 12 (6-26); Blood Urea Nitrogen 9 mg/dL (6-20); Calcium 8.7 mg/dL (8.6-10.3); Carbon Dioxide 27 mEq/L (23-29); Chloride 106 mEq/L (98-107); Glucose 102 mg/dL (70-105); Osmolality,Calculated 283 (280-300); Sodium 137 mEq/L (136-145); eGFR For African Americans > 60 (> 60); eGFR For Non-African Americans > 60 (> 60)
--- NOTE | 2017-02-15 10:58 | Discharge Summary ---
<Mable Hope - Last Filed: 02/15/17 11:11> Date of Encounter: 02/15/17 Time of Encounter: 10:31 - Discharge Diagnosis (1) Biliary dyskinesia Priority: Primary Status: Resolved (2) Abdominal pain Priority: Secondary Status: Resolved Qualifiers: Abdominal location: right upper quadrant Qualified Code(s): R10.11 - Right upper quadrant pain (3) Nausea & vomiting Priority: Secondary Status: Resolved Qualifiers: Vomiting type: unspecified Vomiting Intractability: unspecified Qualified Code(s): R11.2 - Nausea with vomiting, unspecified (4) DVT prophylaxis Priority: Secondary Status: Acute - Discharge Medications Prescriptions: Docusate [Colace] 100 mg PO BID #30 capsule Ibuprofen 800 mg PO Q8H #42 tablet Ondansetron ODT [Zofran ODT] 4 mg SL Q6H PRN #15 tab.rapdis PRN Reason: Nausea Oxycodone HCl/Acetaminophen [Percocet 5-325 mg Tablet] 1 each PO Q4H PRN #30 tablet PRN Reason: Breakthrough Pain Home Medications: Gabapentin [Neurontin] 800 mg PO TID 02/12/17 [History] Glucosamine Sulfate Dipot Chlr [Glucosamine] 1,000 mg PO AD 02/12/17 [History] HYDROcodone/Acet 5/325 mg [[place] 5-325 mg] 1 tab PO Q4H PRN 02/12/17 [History] Tizanidine HCl 4 mg PO TID PRN 02/12/17 [History] Tramadol HCl [Ultram] 100 mg PO TID PRN 02/12/17 [History] Docusate [Colace] 100 mg PO BID #30 capsule 02/15/17 [Rx] Ibuprofen 800 mg PO Q8H #42 tablet 02/15/17 [Rx] Ondansetron ODT [Zofran ODT] 4 mg SL Q6H PRN #15 tab.rapdis 02/15/17 [Rx] Oxycodone HCl/Acetaminophen [Percocet 5-325 mg Tablet] 1 each PO Q4H PRN #30 tablet 02/15/17 [Rx] Allergies/Adverse Reactions: 3 Allergy/AdvReac Type Severity Reaction Status Date / Time No Known Allergies Allergy Verified 02/12/17 15:28 General Surgery Exam Initial Vital Signs Temp Pulse Resp BP Pulse Ox 98.5 F 80 16 129/85 98 02/12/17 14:04 02/12/17 14:04 02/12/17 14:04 02/12/17 14:04 02/12/17 14:04 - General physical appearance well developed, well nourished, no distress, no pain - Respiratory normal expansion, normal respiratory effort, clear to auscultation - Cardiovascular Cardiovascular exam: Present: RRR. Absent: no murmurs/rubs/gallops - Abdomen Abdomen general surgery: Present: bowel sounds present, soft, non tender. Absent: peritoneal - Incision Incision: Present: clean and dry, intact. Absent: draining - Neurologic Present: CN 2-12 grossly intact - Psychiatric Psychiatric general surgery: Present: appropriate, oriented to person, oriented to place, oriented to time, speech is normal, memory intact Date of admission: 02/14/17 19:02 Primary care physician: PCP ND Discharging clinician: Mable Hope Anticipated date of discharge: 02/15/17 - Patient Status Disposition: Home, Self-Care Condition: Good Functional capacity at discharge: independent ambulation Overall status at discharge: patient is progressing back to baseline - Discharge Instructions Instructions: Laparoscopic Cholecystectomy (DC) Follow Up With: [place],PCP [Primary Care Provider] - Liz Landers RADIO HOST [Advanced Practice Nurse] - 03/02/17 8:20 am Forms: Inpatient Work/School Release Additional Instructions: 1. No pushing, pulling, or lifting greater than 15 lbs for 2-4 weeks (depending upon procedure). 2. You may shower beginning today, but no tub baths, soaking, or swimming for 2 weeks. 3. You may resume driving when you are off narcotics and are safe to react in a car. 4. Take ibuprofen every 8 hours for discomfort. If this does not relieve discomfort, you may take the as needed Percocet. Take narcotics as directed. Do not take more narcotics then directed and do not share your narcotics with any other person. Do not drink alcohol while on narcotics. 5. Take stool softeners (Colace) or a water based laxative (Miralax) while taking narcotics. You may hold for loose stools. 6. Report any fevers greater than 100.5F, increase abdominal discomfort, drainage that looks like pus, increased redness or pain at the surgical site, or any vomiting. 7. Report any pain in the calves, shortness of breath, or rapid heartbeat. 8. Follow-up in the office as directed. 9. If you were prescribed antibiotics, do not stop them without talking to your provider. - Diet and Activity Activity: increase activity as tolerated, resume usual activities as tolerated Diet: advance to your usual diet - Hospital Course Hospital course: Mr. Acosta is a 51 year old male who presented to the ED for right-sided abdominal pain x7 days; [facility], [facility], and [facility] were visited previously for the same complaint without resolution. Ultrasound gallbladder ( [facility]) negative for gall stones. Patient was admitted to [facility]. HIDA scan with CCK performed showing gallbladder EF of 90% and no convincing evidence for cholecystitis acute or chronic. However, patient experienced RUQ pain during HIDA scan that continued after exam was completed. Laproscopic cholecystectomy performed and was well tolerated by patient. Throughout his admission, the patient's pain was adequately controlled. His vital signs were stable and he remained afebrile during admission. His labs were unremarkable overall, his white count stayed within normal limits. On the day of discharge, patient felt he was ready to go home and tolerated breakfast well. An outpatient follow up appointment with [facility] was scheduled prior to discharge. Of note: CT abdomen pelvis at outside facility showed a left kidney lesion and CT with renal protocol was recommended. CT with renal protocol was performed and revealed a non-enhancing 1.5cm lesion of the left kidney which was most consistent with a simple cyst and no follow up was indicated. - Time Spent with Patient Total time spent providing and/or coordinating discharge services: Labs on day of discharge: Labs from last 24 hours 02/15/17 02/15/17 09:07 09:07 WBC 9.2 D RBC 4.52 Hgb 13.8 Hct 40.8 MCV 90.3 MCH 30.5 MCHC 33.8 RDW 11.2 L Plt Count 309 MPV 9.7 Immature Gran % 0.4 Seg Neutrophils % 77.6 Lymphocytes % 12.2 Monocytes % 9.7 Eosinophils % 0.0 Basophils % 0.1 Neutrophils # 7.1 Lymphocytes # 1.1 Monocytes # 0.9 Eosinophils # 0.0 Basophils # 0.0 Sodium 137 Potassium 4.0 Chloride 106 Carbon Dioxide 27 BUN 9 Creatinine 0.76 Est GFR ( Amer) > 60 Est GFR (Non-Af Amer) > 60 BUN/Creatinine Ratio 12 Glucose 102 Calculated Osmolality 283 Calcium 8.7 <Esthela Argueta - Last Filed: 02/15/17 14:42> Date of Encounter: 02/15/17 - Discharge Diagnosis (1) Abdominal pain Status: Resolved Qualifiers: Abdominal location: right upper quadrant Qualified Code(s): R10.11 - Right upper quadrant pain (2) Biliary dyskinesia Status: Resolved (3) Nausea & vomiting Status: Resolved Qualifiers: Vomiting type: unspecified Vomiting Intractability: unspecified Qualified Code(s): R11.2 - Nausea with vomiting, unspecified (4) GERD (gastroesophageal reflux disease) Status: Chronic Qualifiers: Esophagitis presence: esophagitis presence not specified Qualified Code(s) : K21.9 - Gastro-esophageal reflux disease without esophagitis (5) Lesion of left [place] kidney Status: Chronic (6) Liver lesion Status: Acute General Surgery Exam Initial Vital Signs Temp Pulse Resp BP Pulse Ox 98.5 F 80 16 129/85 98 02/12/17 14:04 02/12/17 14:04 02/12/17 14:04 02/12/17 14:04 02/12/17 14:04 Date of admission: 02/14/17 19:02 Primary care physician: PCP ND - Hospital Course Hospital course: Mr. Acosta is a 51 year old male - Time Spent with Patient Total time spent providing and/or coordinating discharge services: Labs on day of discharge: Labs from last 24 hours 02/15/17 02/15/17 09:07 09:07 WBC 9.2 D RBC 4.52 Hgb 13.8 Hct 40.8 MCV 90.3 MCH 30.5 MCHC 33.8 RDW 11.2 L Plt Count 309 MPV 9.7 Immature Gran % 0.4 Seg Neutrophils % 77.6 Lymphocytes % 12.2 Monocytes % 9.7 Eosinophils % 0.0 Basophils % 0.1 Neutrophils # 7.1 Lymphocytes # 1.1 Monocytes # 0.9 Eosinophils # 0.0 Basophils # 0.0 Sodium 137 Potassium 4.0 Chloride 106 Carbon Dioxide 27 BUN 9 Creatinine 0.76 Est GFR ( Amer) > 60 Est GFR (Non-Af Amer) > 60 BUN/Creatinine Ratio 12 Glucose 102 Calculated Osmolality 283 Calcium 8.7
== END 2017-02-15 14:13 | disposition home or self-care (01) | DRG 419 ==
LOC: 3ANU 14:03 → EMEROO 14:03 → 3ANU 17:45
PROVIDERS: ADMIT Surgery; ATTEND Surgery